=== PATIENT | female | born 1930 | race Two or more races ===

== ENCOUNTER 2017-12-25 17:59 | Emergency (ER) | payer SELFPAY ==
[~2017-12-25] VITALS: Ht 152.4 cm; Wt 49.9 kg
[2017-12-25 18:00] VITALS: BP 141/88
[2017-12-25] MEDS ORDERED: Tetanus/Diptheria/Pertussis Vaccine 0.5ml Syr IM ONE (18:30)
[2017-12-25] MEDS ORDERED: BACITRACIN15 GM TOPIC (20:10)
[2017-12-25] MEDS ORDERED: Bacitracin Oint UD TOPIC ONE (20:15)
[2017-12-25 20:21] VITALS: BP 141/68
[2017-12-25 20:35] VITALS: BP 141/68
--- NOTE | 2017-12-26 08:47 | Diagnostic Imaging Report ---
Indications: Facial pain, status post fall earlier today Technique: Spiral images obtained through the facial bones. No IV contrast utilized. Multiplanar reconstructions were generated.Total dose length product 1830 mGycm. CTDIvol(s) 70, 28 mGy. Dose reduction achieved using automated exposure control Comparison: none Findings: There is a supraorbital scalp contusion. Questionable small gas bubble seen within the contusion, could indicate element of penetrating trauma. No acute fractures. There is mucosal thickening and some secretions within the right maxillary sinus. Unusual calcific densities are seen within the maxillary antrum. The nasal septum is midline. The remaining sinuses are clear. The mastoids are clear. The mandible is edentulous. Impression: Evidence of supraorbital scalp soft tissue trauma. Small gas bubble within the area of contusion could represent a component of penetrating trauma. Correlate with clinical findings No acute bony trauma Mucosal thickening and debris within the right maxillary sinus. Unusual calcifications within the right maxillary sinus; may reflect old broken off dental roots, among other possibilities This agrees with the preliminary interpretation provided overnight by [facility]erad[facility] service. The CT scanner at [facility] is accredited by the [employer] and the scans are performed using protocols designed to limit radiation exposure to as low as reasonably achievable to attain images of sufficient resolution adequate for diagnostic evaluation.
--- NOTE | 2017-12-26 08:50 | Diagnostic Imaging Report ---
Indications: And trauma, pain Technique: Spiral acquisitions obtained through the brain. Angled axial and coronal 5 x 5 mm slices were reconstructed. Total dose length product 1830.07 mGycm. CTDI vol(s) 70.38,28.19 mGy. Dose reduction achieved using automated exposure control Comparison: None. Findings: There is age-related enlargement of the ventricles and extra axial CSF spaces. There is periventricular deep white matter low-attenuation consistent with chronic ischemic changes. The mastoids are clear. The sinuses are clear. There is evidence of prior bilateral cataract surgery incidentally noted. There is a frontal scalp contusion Impression: Evidence of frontal scalp soft tissue injury Negative for acute intracranial bleed or mass effect Chronic and age-related changes, as described The CT scanner at [facility] is accredited by the [employer] and the scans are performed using protocols designed to limit radiation exposure to as low as reasonably achievable to attain images of sufficient resolution adequate for diagnostic evaluation.
--- NOTE | 2017-12-26 08:52 | Diagnostic Imaging Report ---
Indication: Pain, status post fall Technique: 2 views of the right ribs Comparison: none Findings: Monitoring leads left in place, could obscure pathology. No definite acute fractures. No pneumothorax. Cholecystectomy clips and degenerative lumbar spondylosis are incidentally noted Impression: Negative
--- NOTE | 2017-12-26 08:53 | Diagnostic Imaging Report ---
Indication: Pain, status post fall Technique: 3 views of the right shoulder Comparison: none Findings: Positioning is somewhat limited. No definite acute fractures. No dislocations. The joint spaces are preserved Impression: Negative
--- NOTE | 2017-12-29 14:58 | Emergency Room Report ---
History of Present Illness General Chief Complaint: Multiple Trauma/Fall Source: Family Member Present Illness HPI 87-year-old female presents ED secondary to fall. Daughter at bedside states that patient mechanical trip and fall today and landed forward hitting her head. Notes laceration to her forehead. Tetanus is not up-to-date. Denies LOC. Complaining of pain to her for head. Pain to her right shoulder right ribs. Pain is dull, 7 out of 10, nonradiating. Denies chest pain or shortness of breath. No other aggravating relieving factors. Denies any other associated symptoms Allergies: Coded Allergies: No Known Allergies (Unverified , 12/25/17) Patient History Past Medical History: HTN Past Surgical History: none Pertinent Family History: none Social History: Denies: smoking, alcohol use, drug use Now: No Immunizations: UTD Reviewed Nursing Documentation: PMH: Agreed; PSxH: Agreed Nursing Documentation-PMH Past Medical History: No History, Except For Hx Hypertension: Yes Hx Neurological Problems: Yes - Alzheimer's disease Review of Systems All Other Systems: negative except mentioned in HPI Physical Exam Vital Signs Date Time Temp Pulse Resp B/P (MAP) Pulse Ox O2 Delivery O2 Flow Rate FiO2 12/25/17 17:54 98.0 100 14 138/84 98 Room Air 98.1 Sp02 EP Interpretation: reviewed, normal General Appearance: no apparent distress, alert, GCS 15, non-toxic Head: normocephalic, other - 2cm vertical laceration to forehead Eyes: bilateral eye normal inspection, bilateral eye PERRL ENT: hearing grossly normal, normal pharynx, no angioedema, normal voice Neck: full range of motion, supple/symm/no masses Respiratory: lungs clear, normal breath sounds, speaking full sentences, other - TTP R ribs Cardiovascular #1: regular rate, rhythm, no edema Cardiovascular #2: 2+ carotid (R), 2+ carotid (L), 2+ radial (R), 2+ radial (L) , 2+ dorsalis pedis (R), 2+ dorsalis pedis (L) Gastrointestinal: normal bowel sounds, non tender, soft, non-distended, no guarding, no rebound Rectal: deferred Genitourinary: normal inspection, no CVA tenderness Musculoskeletal: back normal, gait/station normal, normal range of motion, tender - R shoulder Neurologic: alert, oriented x3, responsive, motor strength/tone normal, sensory intact, speech normal Psychiatric: judgement/insight normal, memory normal, mood/affect normal, no suicidal/homicidal ideation Reflexes: 3+ bicep (R), 3+ bicep (L), 3+ tricep (R), 3+ tricep (L), 3+ knee (R) , 3+ knee (L) Skin: normal color, no rash, warm/dry, well hydrated, laceration - 2cm laceration to forehead Lymphatic: no adenopathy Procedures Laceration/Wound Repair Laceration/Wound Repair : Consent: Verbal Wound Location: head Wound's Depth, Shape: linear Wound Explored: clean Betadine Prep?: Yes Anesthesia: 1% Lidocaine Wound Debrided: minimal Wound Repaired With: sutures Suture Size/Type: 6:0, other - nylon Layer Closure?: No Sterile Dressing Applied?: Yes Splint Applied?: No Sling Applied?: No Patient Tolerated: Well Complications: None Medical Decision Making Diagnostic Impression: Primary Impression: Facial laceration Qualified Codes: S01.81XA - Laceration without foreign body of other part of head, initial encounter Additional Impression: Multiple injuries due to trauma ER Course Hospital Course 87-year-old female presents ED status post laceration to forehead, right shoulder right rib pain secondary to fall Differentialfracture, dislocation, intracranial injury Clinical course Patient placed on stretcher. After initial history and physical I ordered tetanus shot. I ordered imaging studies X-rays negative CT head and facial bones negative Discussed findings with patient and family Anesthesia provided with lidocaine. Laceration repaired w/o complication. Dressing applied. Diagnosis - facial laceration, mutiple injuries due to trauma Stable and discharged to home with prescription for bacitracin. wound Care instructions given. Followup with PMD in 5-7 days for suture removal. Return to ED if any signs of infection develop Other X-Ray Diagnostic Results Other X-Ray Diagnostic Results #1: X-Ray ordered: R Ribs # of Views/Limited Vs Complete: 3 View Indication: Pain EP Interpretation: Yes Interpretation: no dislocation, no soft tissue swelling, no fractures, other - no PTX Impression: No acute disease Electronically Signed by: Electronically signed by Walt Bean MD Other X-Ray Diagnostic Results #2: X-Ray ordered: R shoulder # of Views/Limited Vs Complete: 3 View Indication: Pain EP Interpretation: Yes Interpretation: no dislocation, no soft tissue swelling, no fractures Impression: No acute disease Electronically Signed by: Electronically signed by Walt Bean MD CT/MRI/US Diagnostic Results CT/MRI/US Diagnostic Results #1: Imaging Test Ordered: CT Head Impression no acute process CT/MRI/US Diagnostic Results #2: Imaging Test Ordered: CT Facial bones Impression no acute process Last Vital Signs Date Time Temp Pulse Resp B/P (MAP) Pulse Ox O2 Delivery O2 Flow Rate FiO2 12/25/17 20:35 98.1 98 21 141/68 100 Room Air 98.1 Disposition: HOME, SELF-CARE Condition: Stable Scripts Bacitracin (Bacitracin) 28.4 Gm Oint...g. 1 APPLIC TOPIC THREE TIMES A DAY, #28.4 GM Prov: Walt Bean MD 12/25/17 Referrals: NOT CHOSEN IPA/,REFERRING (PCP) Patient Instructions: Head Injury, Adult, [id number], Laceration Care, Adult , [id number] Additional Instructions: have sutures removed in 5-7 days. return to ED if any signs of infection develop Walt Bean MD Dec 29, 2017 14:58
== END 2017-12-25 20:35 | disposition home or self-care (01) ==
LOC: EDBD 17:59 → EMR 18:37
DX: S01.81XA Laceration without foreign body of other part of head, initial encounter (principal); W01.0XXA Fall on same level from slipping, tripping and stumbling without subsequent striking against object, initial encounter; Y93.89 Activity, other specified; Y92.89 Other specified places as the place of occurrence of the external cause; I10 Essential (primary) hypertension; Z23 Encounter for immunization; G30.9 Alzheimer's disease, unspecified
CPT/HCPCS: 70450; 70486; 90471; 90715; 99284

== ENCOUNTER 2017-12-31 16:00 | Emergency (ER) | payer SELFPAY ==
[~2017-12-31] VITALS: Ht 162.6 cm; Wt 68.0 kg
[~2017-12-31 16:00] MED LIST: BACITRACIN15 GM TOPIC
[2017-12-31 16:17] VITALS: BP 124/68
--- NOTE | 2017-12-31 16:27 | Emergency Room Report ---
History of Present Illness General Chief Complaint: Wound Recheck/Suture Removal Source: Patient, Medical Record Present Illness HPI 87-year-old female presents to the emergency department for removal of sutures that were placed on her forehead approximately a week ago. Patient denies bleeding, pain/tenderness, erythema, discharge, fevers or chills. Patient states she is up-to-date with vaccinations. Patient denies complaints at this time. Denies dizziness, CROWE , LOC or confusion. Allergies: Coded Allergies: No Known Allergies (Unverified , 12/25/17) Patient History Past Medical History: see triage record Past Surgical History: none Pertinent Family History: none Immunizations: UTD Reviewed Nursing Documentation: PMH: Agreed; PSxH: Agreed Nursing Documentation-PMH Past Medical History: No History, Except For Hx Hypertension: Yes Hx Neurological Problems: Yes - Alzheimer's disease Review of Systems All Other Systems: negative except mentioned in HPI Physical Exam Vital Signs Date Time Temp Pulse Resp B/P (MAP) Pulse Ox O2 Delivery O2 Flow Rate FiO2 12/31/17 16:06 99.3 93 18 124/68 95 Room Air 99.3 Sp02 EP Interpretation: reviewed, normal General Appearance: no apparent distress, alert, GCS 15, non-toxic Head: normocephalic, other - forehead lac , previously sutures [address], no evidence of infection. Eyes: bilateral eye normal inspection, bilateral eye PERRL ENT: hearing grossly normal, normal voice Neck: full range of motion Respiratory: lungs clear, normal breath sounds, speaking full sentences Cardiovascular #1: regular rate, rhythm Musculoskeletal: back normal, gait/station normal, normal range of motion, non- tender Neurologic: alert, oriented x3, responsive, motor strength/tone normal, sensory intact, normal gait, speech normal, grossly normal Psychiatric: judgement/insight normal Skin: normal color, no rash, warm/dry, well hydrated, wd healing/no infection noted - forehead lac , previously sutures [address], no evidence of infection. Medical Decision Making PA Attestation Dr. López is my supervising Physician whom patient management has been discussed with. Diagnostic Impression: Primary Impression: Encounter for removal of sutures ER Course 87-year-old female presents to the emergency department for removal of sutures that were placed on her forehead approximately a week ago. Patient denies bleeding, pain/tenderness, erythema, discharge, fevers or chills. Patient states she is up-to-date with vaccinations. Patient denies complaints at this time. Denies dizziness, CROWE , LOC or confusion. Ddx considered but are not limited to laceration, tendon injury, cellulitis, dehiscence. Vital signs: are WNL, pt. is afebrile H&PE are most consistent with: healed laceration of the forehead ORDERS: none required at this time, the diagnosis is clinical ED INTERVENTIONS: - 4 Sutures removed. DISCHARGE: At this time pt. is stable for d/c to home. Will provide printed patient care instructions, and any necessary prescriptions. Care plan and follow up instructions have been discussed with the patient prior to discharge. Last Vital Signs Date Time Temp Pulse Resp B/P (MAP) Pulse Ox O2 Delivery O2 Flow Rate FiO2 12/31/17 16:17 99.3 93 18 124/68 95 Room Air 99.3 Disposition: HOME, SELF-CARE Condition: Stable Scripts Bacitracin/Polymyxin B Sulfate (BACITRACIN-POLYMYXIN OINTMENT) 28.35 Gm Oint...g. 1 APPLIC TP BID, #28.3 GM Prov: Suzanna Li 12/31/17 Patient Instructions: Suture Removal, Care After Additional Instructions: Take medications as directed. Follow up with a Primary Care Provider in 3-5 days, even if your symptoms have resolved. --Please review list of primary care clinics, if you do not already have a primary care provider Return sooner to ED if new symptoms occur, or current symptoms become worse. - Please note that this Emergency Department Report was dictated using ERPLYdata control clerk supervisor technology software, occasionally this can lead to erroneous entry secondary to interpretation by the dictation equipment. Suzanna Li Dec 31, 2017 16:27
[2017-12-31] MEDS ORDERED: BACITRACIN-P28.35 GM TP (16:28)
[2017-12-31 16:32] VITALS: BP 124/68
== END 2017-12-31 16:50 | disposition home or self-care (01) ==
LOC: EMR 16:30
DX: S01.81XD Laceration without foreign body of other part of head, subsequent encounter (principal); I10 Essential (primary) hypertension; G30.9 Alzheimer's disease, unspecified; F02.80 Dementia in other diseases classified elsewhere, unspecified severity, without behavioral disturbance, psychotic disturbance, mood disturbance, and anxiety
CPT/HCPCS: 99282